=== PATIENT | female | born 1980 | race Caucasian/White ===

== ENCOUNTER 2022-11-01 11:41 | Emergency (ER) | payer BC, OTHER ==
[~2022-11-01] VITALS: Ht 154.9 cm; Wt 53.5 kg
[2022-11-01] MEDS ORDERED: CHOL400T32 PO (12:00)
--- NOTE | 2022-11-01 12:05 | NUR ---
Patient ambulated to room #4-a, at bedside for exam Patient has been informed of plan of care. No s/s of any distress noted. States has seen PMD today and was sent for lab and ultrasound. patient c/o neck swelling, denies SOB, or difficulty swallowing. Slight swelling noted to anterior neck, states started yesterday, will continue to monitor.
--- NOTE | 2022-11-01 12:14 | NUR ---
veterinary laboratory technician at bedside for exam.
--- NOTE | 2022-11-01 12:33 | NUR ---
Bedside EKG done for MD review, blood has been collect and sent to lab, awaiting results.
[2022-11-01 12:35] LABS: HEMATOCRIT 35.9 % (31.2-41.9); MEAN CORPUSCULAR HEMOGLOBIN 28.6 uug (24.7-32.8); MEAN CORPUSCULAR VOLUME 85.1 fL (75.5-95.3); PLATELET COUNT (AUTO) 261 K/uL (179-408)
[2022-11-01 12:42] LABS: CREATININE 0.6 mg/dL (0.6-1.3); POTASSIUM 3.6 mmol/L (3.5-5.1)
[2022-11-01 12:56] LABS: THYROID STIMULATING HORMONE 0.725 mIU/mL (0.358-3.740)
--- NOTE | 2022-11-01 13:14 | NUR ---
talking with patient.
--- NOTE | 2022-11-01 14:00 | NUR ---
PATIENT REMAINS STABLE FOR DISCHARGE HOME. ACI GIVEN, STATES UNDERSTANDING.
[2022-11-01] MEDS ORDERED: IBUP-1955 PO (14:08)
[2022-11-01 14:14] VITALS: BP 102/72
== END 2022-11-01 14:14 | disposition home or self-care (01) ==
LOC: ER 11:41
DX: R22.1 Localized swelling, mass and lump, neck (principal); M54.2 Cervicalgia; E04.1 Nontoxic single thyroid nodule; R07.89 Other chest pain; Z88.0 Allergy status to penicillin; Z88.2 Allergy status to sulfonamides; Z79.899 Other long term (current) drug therapy
CPT/HCPCS: 36415; 70360; 71045; 84443; 85025; 93005; A4663